=== PATIENT | male | born 1970 | race Caucasian/White ===

== ENCOUNTER 2016-05-10 20:01 | Inpatient (IN) | payer OTHER ==
--- NOTE | ~2016-05-10 | PN ---
Unit #: [id number] #: [id number] Patient: JORDAN MCGEE [id number] [facility] [address] [place] [address] [id number] I MR#: [id number] NAME: JORDAN MCGEE ROOM: P110 Age: 45 Sex: M Admission Date: 05/10/2016 : 1970 Attending Physician: Abdelrahman Gallego M.D. Admitting Physician: Abdelrahman Gallego M.D. Primary Care Physician: Generic Doctor Not In System [facility] PROGRESS NOTES DATE 05/15/2016 DISCUSSION Jordan Mcgee is a 45-year-old male, seen on 05/15/2016. The patient interviewed, chart reviewed, and obtained information from the nursing staff. The patient was compliant and cooperative. Mood sad and dysphoric. The patient reports anxiety and depression, decrease in anxiety. Vital signs, stable, temperature 97.8, pulse 77, respirations 18, and blood pressure 116/70. REVIEW OF SYSTEMS Complete review of systems unremarkable. MENTAL STATUS EXAMINATION General appearance: Patient casually dressed. Attention span and concentration, fair. Oriented to place and person. Mood and affect, sad and dysphoric. Speech, regular rate. Thought process, goal-directed. Association, the patient denied any thoughts of harming self or others or any psychotic symptoms. Recent and remote memory, poor. Insight and judgment, poor. DIAGNOSIS Mood disorder, NOS. ASSESSMENT/PLAN Advised to continue with the current medication and therapeutic protocol and will monitor response to medication, and make further adjustment of medication. Dictated by... Clary Barreto/emmy TD: 05/16/2016 08:31 JOB #: [id number] Unit #: [id number] #: [id number] Patient: JORDAN MCGEE PROGRESS NOTES X Abdelrahman Gallego MD PROGRESS NOTE
--- NOTE | ~2016-05-10 | DS ---
Unit #: [id number] #: [id number] Patient: JACOB MCGEE [id number] [facility] [address] [place] [address] [id number] MR#: [id number] NAME: JACOB MCGEE ROOM: [facility] Age: 45 Sex: M Admission Date: 05/10/2016 : 1970 Discharge Date: 05/16/2016 Attending Physician: Abdelrahman Gallego M.D. Primary Care Physician: Generic Doctor Not In System DISCHARGE SUMMARY REASON FOR ADMISSION Anxiety and panic attack. DIAGNOSTIC STUDIES LABORATORY RESULTS: Unremarkable. HOSPITAL COURSE The patient was admitted to inpatient unit on 05/10/2016 and discharged on 05/16/2016. The patient was treated on the inpatient unit with behavior management, medication management, psychotherapy, and structured milieu. The patient responded well with the above modalities of treatment and following medications, Haldol 5 mg b.i.d. for psychosis and Cogentin 1 mg b.i.d. for EPS symptom. DISCHARGE DIAGNOSES Psychiatric: 1. Psychosis, not otherwise specified, F29.0. 2. Schizophrenia, chronic paranoid type, F20.0. 3. Cocaine use disorder, severe, F14.20. Secondary diagnosis: Deferred. Medical diagnoses: Chronic headache, chronic obstructive pulmonary disease. Stressors: Psychosocial stressors. DISCHARGE INSTRUCTIONS The patient is to follow up in outpatient clinic as per social work supervisor. CONDITION ON DISCHARGE The patient was pleasant and cooperative. Denied any psychotic symptom or any suicidal ideation. PROGNOSIS Guarded. DIET AND ACTIVITY As tolerated. Dictated by... Abdelrahman Gallego M.D. Unit #: [id number] #: [id number] Patient: JACOB MCGEE SZC/modl TD: 05/16/2016 20:05 JOB #: [id number] DISCHARGE SUMMARY X Abdelrahman Gallego MD X DISCHARGE SUMMARY
--- NOTE | ~2016-05-10 | PA ---
Unit #: [id number] #: [id number] Patient: JORDAN MCGEE [id number] [facility] [address] [place] [address] [id number] I MR#: [id number] NAME: JORDAN MCGEE ROOM: P110 Age: 45 Sex: M Admission Date: 05/10/2016 : 1970 Date of Assessment: 05/11/2016 Attending Physician: Abdelrahman Gallego M.D. Admitting Physician: Abdelrahman Gallego M.D. Primary Care Physician: Generic Doctor Not In System PSYCHIATRIC ASSESSMENT INFORMANTS The patient's reliability, fair; chart reliability, good. CHIEF COMPLAINT Anxiety, panic attack, cocaine use. HISTORY OF PRESENT ILLNESS Mr. Jordan Mcgee is a 45-year-old male, seen on with the above-mentioned complaint. The patient presented with psychotic symptom, reported hearing voices. The patient reported that he has vivid hallucination brought by stress. The patient also having suicidal ideation. The patient reported that he is hearing voices with commands to run and denied any suicidal ideation later. The patient reported mourning of his mother who 20 years ago. The patient reported that he needed help with the voices and hallucination. The patient has a history of psychosis. Reported history of tobacco use, age of onset 19; crack cocaine use, age of onset 23. The patient reports that he has used cocaine last night. The patient was anxious, irritable, disorganized, poor hygiene and grooming. Needing inpatient admission at this time for psychiatric stabilization. PAST PSYCHIATRIC HISTORY Remarkable for history of previous treatment for psychosis inpatient in the past. No details unknown at this time. FAMILY HISTORY AND SOCIAL HISTORY The patient currently homeless. Carries a diagnosis of schizophrenia spectrum disorder. Family psychiatric illness unknown. No known history of any abuse. No legal charges. MEDICAL HISTORY Remarkable for chronic headache and COPD. Musculoskeletal; muscle strength and tone, no atrophy or abnormal movement. Gait normal. MEDICATION HISTORY None. ALLERGIES No known drug allergies. SUBSTANCE ABUSE HISTORY None. Unit #: [id number] #: [id number] Patient: JORDAN MCGEE REVIEW OF SYSTEMS HEENT: Eyes, clear. Ears, nose, mouth, and throat; clear. CARDIOVASCULAR: Unremarkable. RESPIRATORY: Unremarkable. GI: Unremarkable. : Unremarkable. SKIN: Unremarkable. LYMPH NODE: Unremarkable. NEUROLOGIC: Unremarkable. ENDOCRINE: Unremarkable. HEMATOLOGIC: Unremarkable. ALLERGIC/IMMUNOLOGIC: Unremarkable. MUSCULOSKELETAL: Muscle strength and tone, no atrophy or abnormal movement. Gait normal. MENTAL STATUS EXAMINATION CONSTITUTIONAL: Measurement of vital signs; temperature 98.0, pulse 87, respirations 19, blood pressure 131/71. Height 5 feet 9 inches, weight 155 pounds. GENERAL APPEARANCE: The patient dressed casually. The patient did not show any facial deformity. MUSCULOSKELETAL: Please see above. PSYCHIATRIC EXAMINATION Description of speech; regular rate, normal volume. Description of thought process was circumstantial. Description of association, guarded and paranoid. The patient reported delusions, hallucination, paranoia, mood lability, substance abuse. Description of the patient's judgment; concerning everyday activity, poor. Social situation, poor. Concerning psychiatric condition, poor. The patient also reported suicidal ideation. Complete review of system; oriented in time, place, and person. Recent and remote memory, fair. Attention span and concentration, fair. Language, able to name object and repeat phrases. Fund of knowledge, fair. Vocabulary, fair. Insight and judgment, poor. ASSETS AND LIABILITIES Assets; the patient articulate, able to take care of his ADL. Liability; history of psychosis, substance abuse, depression. ADMITTING DIAGNOSES Psychiatric: 1. Psychosis, not otherwise specified, F29.0. 2. Schizophrenia, chronic paranoid type, F20.0. 3. Cocaine use disorder, severe, F14.20. Secondary diagnosis: Deferred. Medical diagnoses: Chronic headache and chronic obstructive pulmonary disease. Stressors: Psychosocial stressors. PSYCHIATRIC PLAN AND TREATMENT GOAL 1. Advised to admit the patient on the inpatient unit. Provide safe, supportive, and structured environment. 2. Ordered labs; CBC, CMP, UA, and UDS. 3. Precaution for psychosis, SP1 precaution. 4. The patient to attend all the programing on the inpatient unit, group Unit #: [id number] #: [id number] Patient: JORDAN MCGEE therapy, individual therapy, medication management. 5. Advised Haldol 5 mg b.i.d. and Cogentin 1 mg b.i.d. for psychosis and EPS symptom. Treatment goal to attain euthymic mood, gain insight into his problem, and learn coping skills. DISCHARGE PLAN Plan to stabilize the patient and consider followup in outpatient program. ESTIMATED LENGTH OF STAY 3 to 5 days. Dictated by... Clary Barreto/napoleon TD: 05/12/2016 02:34 JOB #: [id number] PSYCHIATRIC ASSESSMENT X Abdelrahman Gallego MD PSYCHIATRIC ASSESSMENT
--- NOTE | ~2016-05-10 | PN ---
Unit #: [id number] #: [id number] Patient: JORDAN MCGEE [id number] [facility] [address] [place] [address] [id number] MR#: [id number] NAME: JORDAN MCGEE ROOM: P110 Age: 45 Sex: M Admission Date: 05/10/2016 : 1970 Attending Physician: Abdelrahman Gallego M.D. Admitting Physician: Abdelrahman Gallego M.D. Primary Care Physician: Generic Doctor Not In System [facility] PROGRESS NOTES DATE OF SERVICE: 05/12/2016 DISCUSSION Mr. Jordan Mcgee is a 45-year-old male, seen on 05/12/2016. The patient's mood was labile, angry, mad, upset, rude, threatening, and yelling on the unit. REVIEW OF SYSTEMS Complete review of systems unremarkable. MENTAL STATUS EXAMINATION General appearance, the patient dressed casually. Attention span and concentration, poor. Mood, labile. Speech, regular rate. Thought process, goal directed. The patient denied any thoughts of harming self or others, but having above-mentioned behavior, mood lability, paranoia, and seclusive. Recent and remote memory, poor. Insight and judgment, poor. DIAGNOSIS Mood disorder, not otherwise specified. ASSESSMENT/PLAN Advised to continue with current medication. If needed, consider further adjustment of medication. Closely monitor for aggression and self-harm. Dictated by... Clary Barreto/napoleon TD: 05/14/2016 14:32 JOB #: [id number] Unit #: [id number] #: [id number] Patient: JORDAN MCGEE [facility] PROGRESS NOTES X Abdelrahman Gallego MD PROGRESS NOTE
--- NOTE | ~2016-05-10 | PN ---
Unit #: [id number] #: [id number] Patient: JORDAN MCGEE [id number] [facility] [address] [place] [address] [id number] I MR#: [id number] NAME: JORDAN MCGEE ROOM: [facility] Age: 45 Sex: M Admission Date: 05/10/2016 : 1970 Attending Physician: Abdelrahman Gallego M.D. Admitting Physician: Abdelrahman Gallego M.D. Primary Care Physician: Generic Doctor Not In System [facility] PROGRESS NOTES DATE 05/09/2016 DISCUSSION Mr. Jordan Mcgee is a 45-year-old male seen on 05/11/2016. The patient interviewed, chart reviewed. Obtained information from nursing staff. The patient was compliant and cooperative. Mood sad, dysphoric, flat, withdrawn, isolative, guarded, anxious. The patient denied any complaints except as mentioned above. Complete review of systems unremarkable. MENTAL STATUS EXAMINATION General appearance, the patient dressed casually. Attention span and concentration fair. Oriented to place and person. Mood and affect the patient guarded, paranoid, withdrawn, isolative. Recent and remote memory poor. Insight and judgement poor. DIAGNOSES 1. Mood disorder NOS 2. Psychosis NOS 3. Cocaine use disorder severe ASSESSMENT/PLAN Advise to continue with current medication and therapeutic protocol. We will monitor response to medication and make further adjustment of medication. Dictated by... Clary Barreto/dickson TD: 05/12/2016 20:47 JOB #: [id number] Unit #: [id number] #: [id number] Patient: JORDAN MCGEE [facility] PROGRESS NOTES X Abdelrahman Gallego MD PROGRESS NOTE
--- NOTE | ~2016-05-10 | PN ---
Unit #: [id number] #: [id number] Patient: JORDAN MCGEE [id number] [facility] [address] [place] [address] [id number] I MR#: [id number] NAME: JORDAN MCGEE ROOM: P110 Age: 45 Sex: M Admission Date: 05/10/2016 : 1970 Attending Physician: Abdelrahman Gallego M.D. Admitting Physician: Abdelrahman Gallego M.D. Primary Care Physician: Generic Doctor Not In System [facility] PROGRESS NOTES DATE OF SERVICE: 05/14/2016 DISCUSSION Jordan Mcgee is a 45-year-old male, seen on 05/14/2016. The patient interviewed, chart reviewed, and obtained information from nursing staff. The patient was compliant, cooperative, withdrawn, isolative, staying in room, flat affect, poor interaction. The patient reported medication is helping him. Denied any thoughts of harming self or others. Complete review of systems unremarkable. MENTAL STATUS EXAMINATION General appearance, the patient dressed casually. Attention span and concentration, fair. Oriented in place and person. Mood and affect; sad, dysphoric, flat. Speech, monotone. Thought process, concrete. The patient denied any thoughts of harming self or others, but guarded and paranoid. Recent and remote memory, poor. Insight and judgment, poor. DIAGNOSIS Mood disorder, not otherwise specified. ASSESSMENT AND PLAN Advised to continue with current medication and therapeutic protocol. We will monitor response to medication and make further adjustment of medication. Dictated by... Clary Barreto/napoleon TD: 05/15/2016 19:55 JOB #: [id number] Unit #: [id number] #: [id number] Patient: JORDAN MCGEE PROGRESS NOTES X Abdelrahman Gallego MD PROGRESS NOTE
--- NOTE | ~2016-05-10 | PN ---
Unit #: [id number] #: [id number] Patient: JORDAN MCGEE [id number] [facility] [address] [place] [address] [id number] I MR#: [id number] NAME: JORDAN MCGEE ROOM: P110 Age: 45 Sex: M Admission Date: 05/10/2016 : 1970 Attending Physician: Abdelrahman Gallego M.D. Admitting Physician: Abdelrahman Gallego M.D. Primary Care Physician: Generic Doctor Not In System [facility] PROGRESS NOTES DATE OF SERVICE: 05/13/2016 DISCUSSION Mr. Jordan Mcgee is a 45-year-old male. The patient interviewed, chart reviewed, and obtained information from nursing staff. The patient reported having severe anxiety, mood lability, pacing in the hallway. Getting mad, angry, and upset and mood lability and irritability. REVIEW OF SYSTEMS Complete review of systems unremarkable. MENTAL STATUS EXAMINATION General appearance, the patient dressed casually. Attention span and concentration, fair. Oriented in place and person. Mood and affect, labile. Speech, rapid. Thought process, circumstantial. The patient denied any thoughts of harming self or others, but irritability, mood lability, guarded, paranoid, and severe anxiety. Recent and remote memory, poor. Insight and judgment, poor. DIAGNOSIS Mood disorder, not otherwise specified. ASSESSMENT AND PLAN Advised to continue with current medication and therapeutic protocol. Advised Ativan 0.5 mg t.i.d. while in the hospital to control severe anxiety. If needed, consider further adjustment of medication. Dictated by... Clary Barreto/napoleon TD: 05/14/2016 15:15 JOB #: [id number] Unit #: [id number] #: [id number] Patient: JORDAN MCGEE PROGRESS NOTES X Abdelrahman Gallego MD PROGRESS NOTE
--- NOTE | ~2016-05-10 | HP ---
Unit #: [id number] #: [id number] Patient: JORDAN MCGEE [id number] [place] [address] [id number] I MR#: [id number] NAME: JORDAN MCGEE ROOM: P110 Age: 45 Sex: M Admission Date: 05/10/2016 : 1970 Attending Physician: Abdelrahman Gallego M.D. Admitting Physician: Abdelrahman Gallego M.D. Primary Care Physician: Generic Doctor Not In System HISTORY AND PHYSICAL HISTORY OF PRESENT ILLNESS Jordan is a 45 year old admitted to [address] [place] [address] with psychotic behavior. He reports auditory hallucinations. He is a poor historian so his history is taken from his chart. PAST MEDICAL HISTORY COPD. PAST SURGICAL HISTORY Nothing reported. ALLERGIES No known drug allergies. SOCIAL HISTORY Smokes 1 pack per day. Drinks alcohol on occasion. Denies illicit drug use. FAMILY HISTORY Medically noncontributory. REVIEW OF SYSTEMS He does not answer all questions appropriately. There were no reports of nausea, vomiting or diarrhea. He has had no cough or increased temperature. CURRENT MEDICATIONS 1. Vistaril p.r.n. 2. Trazodone 75 mg q.h.s. p.r.n. 3. Milk of Magnesia p.r.n. 4. Maalox p.r.n. 5. Tylenol p.r.n. 6. Haldol 5 mg b.i.d. 7. Cogentin 1 mg b.i.d. PHYSICAL EXAMINATION GENERAL: Alert, thin, in no apparent distress. VITAL SIGNS: Blood pressure 130/72, heart rate 80, respirations 16, temperature 98.6. WEIGHT: 155. HEIGHT: 5 feet 9 inches. SKIN: Warm and dry without rash or lesion. HEENT: Normocephalic. TMs not viewed. Oral and nasal passages clear. Conjunctivae clear. PERRLA. EOMs intact. Unit #: [id number] #: [id number] Patient: JORDAN MCGEE NECK: Supple without lymphadenopathy or thyromegaly. HEART: Regular rate and rhythm without murmur. LUNGS: Clear. ABDOMEN: Soft, nontender. : Not done. EXTREMITIES: No evidence of cyanosis, clubbing or edema. Moves all without focal deficit. NEUROLOGICAL: Unable to complete extended exam. He does move all extremities without focal deficit. Hand business architect is equal and gait is normal. IMPRESSION Psychiatric admission. RECOMMENDATIONS PSYCHIATRIC: Per psychiatrist. MEDICAL: See no contraindications to participate in facility's activities. MEDICAL PROGNOSIS Good. MEDICAL CONDITION Stable. Dictated by... Emelyn Stein P.A.-C. for Clary Whatley/cheyenne TD: 05/11/2016 20:33 JOB #: [id number] HISTORY AND PHYSICAL X Emelyn Stein HISTORY AND PHYSICAL
[2016-05-11 12:24] LABS: BASOPHIL# 0.1 X10e3 (0-0.3); BASOPHIL% 1.1 % (0-2.5); EOSINOPHIL# 0.4 X10e3 (0-0.7); EOSINOPHIL% 5.1 % (0.0-7.0); HEMATOCRIT 42.7 % (38.0-50.0); HEMOGLOBIN 14.3 gm/dL (13.0-16.0); LYMPHOCYTE# 2.1 X10e3 (1.0-3.5); LYMPHOCYTE% 25.3 % (17.0-45.0); MEAN CELL VOLUME 92.1 FL (83-96); MEAN CORPUSCULAR HEMOGLOBIN 30.9 PG (28-34); MEAN CORPUSCULAR HGB CONC 33.5 g/dL (30-36); MEAN PLATELET VOLUME 8.7 FL (6.5-11.5); MONOCYTE# 0.9 X10e3 (0-1.0); MONOCYTE% 10.9 % (3.0-12.0); NEUTROPHIL# 4.7 X10e3 (1.5-7.1); NEUTROPHIL% 57.6 % (40-75); PLATELET COUNT 232 X10e3 (140-420); RED BLOOD COUNT 4.64 X10e (3.90-5.60); RED CELL DISTRIBUTION WIDTH 13.9 % (11.0-15.5); WHITE BLOOD COUNT 8.2 X10e3 (4.0-10.5)
[2016-05-11 12:26] LABS: DIFF IND NO
[2016-05-11 12:36] LABS: ALBUMIN SERUM 3.9 g/dL (3.5-5.0); ALKALINE PHOSPHATASE 50 U/L (32-92); ALT (SGPT) 14 U/L (10-40); AST (SGOT) 27 U/L (10-42); BILIRUBIN,TOTAL 1.2 mg/dL (0.2-2.0); BLOOD UREA NITROGEN 18 mg/dL (9-23); CARBON DIOXIDE 27 mmol/L (22-31); CHLORIDE 102 mmol/L (100-111); CREATININE SERUM 0.9 mg/dL (0.6-1.4); GLOM FILT RATE Estimated ABOVE60 mL/min (>60); GLUCOSE FASTING 103 mg/dL (70-110); POTASSIUM 3.6 mmol/L (3.5-5.1); PROTEIN TOTAL SERUM 6.8 g/dL (6.0-8.3); SODIUM 137 mmol/L (135-145)
== END 2016-05-16 11:17 | disposition home or self-care (01) | DRG 885 ==
LOC: P1S 20:01
PROVIDERS: Psychiatry & Neurology Psychiatry
DX: F29 Unspecified psychosis not due to a substance or known physiological condition (principal); F14.20 Cocaine dependence, uncomplicated; F20.0 Paranoid schizophrenia; R51 Headache; J44.9 Chronic obstructive pulmonary disease, unspecified; F17.200 Nicotine dependence, unspecified, uncomplicated; F39 Unspecified mood [affective] disorder
CPT/HCPCS: 80053; 85025; J0515; J1630; J2060